=== PATIENT | female | born 1995 | race Two or more races ===

== ENCOUNTER 2023-06-20 07:40 | Inpatient (IN) | payer MEDICAID ==
[~2023-06-20] VITALS: Ht 157.5 cm; Wt 77.1 kg
[2023-06-20] MEDS ORDERED: BUTORPHANOL TARTRATE 2 MG/1 ML VIAL IV PRN ×2 (09:45)
[2023-06-20] MEDS ORDERED: PROMETHAZINE HCL 25 MG/ML 1ML IV PRN (09:45)
[2023-06-20] MEDS ORDERED: PHISODERM TOP SOLN 240ML BTL TOP PRN (09:45)
[2023-06-20] MEDS ORDERED: LIDOCAINE 2%HCL (LOCAL ANESTH.) INJ 20ML MDV IJ PRN (09:45)
[2023-06-20] MEDS ORDERED: PENICILLIN G POT 5MIL/D5 50ML 50 ML IV ONE (09:45)
[2023-06-20] MEDS ORDERED: LACT. RINGERS/OXYTOCIN 20UNITS 500 ML IV ONE ×2 (09:45→10:15)
[2023-06-20] MEDS ORDERED: WITCH HAZEL-GLYCERIN PAD TOP PRN (09:45)
[2023-06-20] MEDS ORDERED: DERMOPLAST 60ML BOTTLE TOP PRN (09:45)
[2023-06-20 10:04] LABS: Basophils # (auto) 0.1 10 ^3/uL (0-0.2); Basophils % (auto) 0.6 % (0.0-2.0); Eosinophils # (auto) 0.1 10 ^3/uL (0-0.8); Eosinophils % (auto) 1.3 % (0.0-7.0); Hematocrit 36.8 % (36.0-46.0); Hemoglobin 12.5 g/dL (12.2-16.2); Lymphocytes # (auto) 1.9 10 ^3/uL (0.4-5.4); Mean Corpuscular Hemoglobin 30.3 pg (28.0-32.0); Mean Corpuscular Hgb Conc. 33.9 g/dL (32.0-36.0); Mean Corpuscular Volume 89.3 fL (80.0-100.0); Monocytes # (auto) 0.5 10 ^3/uL (0-1.3); Monocytes % (auto) 6.2 % (0.0-12.0); Neutrophils # (auto) 6.3 10 ^3/uL (1.6-8.6); Neutrophils % (auto) 70.9 % (37.0-80.0); Nucleated Red Blood Cells % 0.1 %; Red Blood Cells 4.12 10^6/uL (4.0-5.20); Red Cell Distribution Width 13.7 % (11.8-14.3); White Blood Cell 8.9 10^3/uL (4.4-10.8)
[2023-06-20 10:26] LABS: INR 0.99 (0.9-1.15); Partial Thromboplastin Time 28.3 SEC (24.5-34.5); Prothrombin Time 10.4 sec (9.3-11.8)
[2023-06-20 10:27] LABS: Alanine Aminotransferase 16 U/L (7-40); Albumin 3.5 g/dL (3.2-4.8); Alkaline Phosphatase 164 U/L (46-116); Anion Gap 8 (5-15); Aspartate Aminotransferase 21 U/L (13-40); BUN/Creatinine Ratio 11.1 (10.0-20.0); Blood Urea Nitrogen 6 mg/dL (9-23); Calcium 8.9 mg/dL (8.5-10.1); Carbon Dioxide 22 mmol/L (20-30); Chloride 108 mmol/L (98-107); Glucose 72 mg/dL (74-106); Sodium 138 mmol/L (136-145)
[2023-06-20 10:28] LABS: Bilirubin, Total 0.5 mg/dL (0.2-1.0); Total Protein 5.9 g/dL (5.7-8.2)
[2023-06-20] MEDS: LACTATED RINGER'S 1,000 ML IV SCH (10:32)
[2023-06-20 10:33] LABS: Urine Bacteria NONE SEEN /hpf (None Seen); Urine Blood Negative /uL (Negative); Urine Clarity HAZY (Clear); Urine Protein, UAD Negative (Negative); Urine Specific Gravity 1.008 (1.001-1.035); Urine Urobilinogen Normal (Negative); Urine WBC 112 /hpf (0 - 5)
[2023-06-20 10:41] LABS: Amphetamine Screen, Urine Neg (NEGATIVE); Barbiturate Scree,Urine Neg (NEGATIVE); Benzodiazephine Screen, Urine Neg (NEGATIVE); Cannabinoid Screen, Urine Neg (NEGATIVE); Cocaine Screen, Urine Neg (NEGATIVE); Opiate Scree,Urine Neg (NEGATIVE); Phencyclidine Screen, Urine Neg (NEGATIVE)
[2023-06-20 10:43] LABS: Urine Color STRAW (Yellow)
[2023-06-20] MEDS: miSOPROStol 50 MCG per PRE-CUT 1/2 TAB PO PRN ×3 (10:52→22:36)
[2023-06-20] MEDS ORDERED: ceFAZolin 1GM/50ML 50 ML IV SCH ×2 (12:00→14:00)
[2023-06-20] MEDS ORDERED: PENICILLIN G POTASSIUM 2,500,000 UNITS in D5W 5% 50 ML IV SCH (13:45)
[2023-06-20] MEDS: ceFAZolin 1GM/50ML 50 ML IV SCH (20:33)
[2023-06-21] MEDS ORDERED: ROPIVACAINE HCL 200 ML EPI SCH ×2 (01:15→03:15)
[2023-06-21] MEDS ORDERED: ePHEDrine SULFATE 50 MG/ML AMP IV ONE (01:15)
[2023-06-21] MEDS ORDERED: LACTATED RINGER'S 500 ML IV ONE (01:15)
[2023-06-21] MEDS ORDERED: LIDOCAINE HCL 2 %PF INJ 10ML AMP IJ ONE (01:15)
[2023-06-21] MEDS ORDERED: NALOXONE HCL 0.4 MG/ML VIAL IV ONE (01:15)
[2023-06-21] MEDS ORDERED: Lidocaine W-Epinephrine 1.5%-1:200,000 INJ 10ml Vial IJ ONE (01:15)
[2023-06-21] MEDS ORDERED: fentaNYL CITRATE 100 MCG/2 ML VL IV ONE (01:15)
[2023-06-21] MEDS ORDERED: LACTATED RINGER'S 1,000 ML IV ONE (01:15)
[2023-06-21] MEDS: LACTATED RINGER'S 1,000 ML IV SCH (02:43)
[2023-06-21] MEDS: ceFAZolin 1GM/50ML 50 ML IV SCH (04:33)
[2023-06-21] MEDS ORDERED: miSOPROStol 100 mcg TAB PR PRN (05:00)
[2023-06-21] MEDS ORDERED: METHYLERGONOVINE MALEATE 0.2 MG/ML AMP IM PRN (05:00)
[2023-06-21] MEDS ORDERED: ONDANSETRON HCL 4 MG/2 ML VIAL IV PRN (05:00)
[2023-06-21] MEDS ORDERED: CARBOPROST TROMETHAMINE 250 MCG/1ML VIAL IM PRN (05:00)
[2023-06-21] MEDS ORDERED: miSOPROStol 100 mcg TAB SL PRN (05:00)
[2023-06-21] MEDS ORDERED: LACT. RINGERS/OXYTOCIN 20UNITS 500 ML IV ONE ×2 (06:00→06:30)
[2023-06-21] MEDS ORDERED: LIDOCAINE 2%HCL (LOCAL ANESTH.) INJ 20ML MDV IJ PRN (06:00)
[2023-06-21] MEDS ORDERED: IBUPROFEN 600 MG TAB PO PRN (08:15)
[2023-06-21] MEDS ORDERED: ACETAMINOPHEN 325 MG TAB PO PRN (08:15)
[2023-06-21 08:55] LABS: Hematocrit 32.2 % (36.0-46.0); Hemoglobin 10.9 g/dL (12.2-16.2); Mean Corpuscular Hemoglobin 30.4 pg (28.0-32.0); Mean Corpuscular Hgb Conc. 33.8 g/dL (32.0-36.0); Mean Corpuscular Volume 89.8 fL (80.0-100.0); Red Blood Cells 3.59 10^6/uL (4.0-5.20); Red Cell Distribution Width 13.6 % (11.8-14.3); White Blood Cell 12.6 10^3/uL (4.4-10.8)
[2023-06-21 09:03] LABS: Basophils % (manual) 0 (0.0-2.0); Blast Cells 0; Eosinophils % (manual) 0 (0-7); Metamyelocytes % 0; Myelocytes % 0; Promyelocytes % 0; Reactive Lymphocytes 0
[2023-06-21 09:33] LABS: Platelet Estimate Adequate; RBC Morphology Normal
[2023-06-21 09:37] LABS: Band Neutrophils % (manual) 4; Lymphocytes % (manual) 13 (10.0-50.0)
[2023-06-21 09:38] LABS: Monocytes % (manual) 6 (0-12)
[2023-06-21] MEDS ORDERED: DIPHENOXYLATE W/ATROPINE 2.5 MG TAB PO SCH (10:00)
[2023-06-21] MEDS: DOCUSATE CALCIUM 240 MG CAP PO SCH (10:00)
[2023-06-21 11:00] VITALS: BP 110/64; PULSE 89; RESP 18; TEMP 99.1; O2SAT 97
[2023-06-21 12:04] LABS: Basophils # (auto) 0 10 ^3/uL (0-0.2); Basophils % (auto) 0.3 % (0.0-2.0); Eosinophils # (auto) 0 10 ^3/uL (0-0.8); Eosinophils % (auto) 0.2 % (0.0-7.0); Hematocrit 30.6 % (36.0-46.0); Hemoglobin 10.3 g/dL (12.2-16.2); Lymphocytes # (auto) 1.7 10 ^3/uL (0.4-5.4); Lymphocytes % (auto) 13.2 % (10.0-50.0); Mean Corpuscular Hemoglobin 30.3 pg (28.0-32.0); Mean Corpuscular Hgb Conc. 33.7 g/dL (32.0-36.0); Mean Corpuscular Volume 89.8 fL (80.0-100.0); Monocytes % (auto) 7.4 % (0.0-12.0); Neutrophils # (auto) 10.4 10 ^3/uL (1.6-8.6); Neutrophils % (auto) 78.9 % (37.0-80.0); Red Cell Distribution Width 13.6 % (11.8-14.3); White Blood Cell 13.2 10^3/uL (4.4-10.8)
[2023-06-21 15:00] VITALS: BP 110/64; PULSE 99; RESP 18; TEMP 98.9; O2SAT 97
[2023-06-21] MEDS ORDERED: HYDROcodone-ACET 5/325MG TAB PO PRN (15:30)
[2023-06-21] MEDS: HYDROcodone-ACET 5/325MG TAB PO PRN ×2 (15:35→22:26)
[2023-06-21 19:00] VITALS: BP 112/62; PULSE 98; RESP 18; TEMP 98.2; O2SAT 98
[2023-06-21] MEDS: MILK OF MAGNESIA 30ML SUSP PO SCH (19:42)
[2023-06-21] MEDS ORDERED: DOCUSATE SOD 100 MG CAP PO SCH (22:00)
[2023-06-21 23:00] VITALS: BP 101/64; PULSE 94; RESP 18; TEMP 98.4; O2SAT 98
[2023-06-22 03:00] VITALS: BP 105/68; PULSE 88; RESP 18; TEMP 98.9; O2SAT 97
[2023-06-22 06:06] LABS: RPR Non Reactive (Non Reactive)
[2023-06-22] MEDS ORDERED: IBU600T PO (06:53)
[2023-06-22] MEDS ORDERED: DOCU-265 PO (06:53)
[2023-06-22 07:10] VITALS: BP 105/67; PULSE 91; RESP 17; TEMP 98.3; O2SAT 100
[2023-06-22] MEDS: HYDROcodone-ACET 5/325MG TAB PO PRN (07:41)
[2023-06-22] MEDS: DOCUSATE CALCIUM 240 MG CAP PO SCH (09:55)
[2023-06-22] MEDS: MILK OF MAGNESIA 30ML SUSP PO SCH (09:56)
[2023-06-22 11:20] VITALS: BP 90/55; PULSE 84; RESP 16; TEMP 97.9; O2SAT 97
[2023-06-22 22:06] LABS: Chlamydia Trachomatis, NAA Negative (Negative); Neisseria gonorrhoeae, NAA Negative (Negative)
[2023-06-23 20:06] LABS: Treponema pallidum Ab (FTA-Ab) Non Reactive (Non Reactive)
== END 2023-06-22 13:05 | disposition home or self-care (01) | DRG 542 ==
LOC: LDRP 07:40 → OBSVTOIN 09:36 → LDRP 06-21 11:51
PROVIDERS: ADMIT Obstetrics & Gynecology; ATTEND Obstetrics & Gynecology
PROC: 10D07Z6 Extraction of Products of Conception, Vacuum, Via Natural or Artificial Opening (ICD-10-PCS; principal; 2023-06-21)
PROC: 0DQR0ZZ Repair Anal Sphincter, Open Approach (ICD-10-PCS; 2023-06-21)
PROC: 3E0R3BZ Introduction of Anesthetic Agent into Spinal Canal, Percutaneous Approach (ICD-10-PCS; 2023-06-21)
PROC: 00HU33Z Insertion of Infusion Device into Spinal Canal, Percutaneous Approach (ICD-10-PCS; 2023-06-21)
DX: O48.0 Post-term pregnancy (principal); Z37.0 Single live birth; O70.20 Third degree perineal laceration during delivery, unspecified; O75.81 Maternal exhaustion complicating labor and delivery; O71.89 Other specified obstetric trauma; O77.0 Labor and delivery complicated by meconium in amniotic fluid; O76 Abnormality in fetal heart rate and rhythm complicating labor and delivery; Z3A.40 40 weeks gestation of pregnancy
CPT/HCPCS: 36415; 59025; 59409; 62282; 76818; 80053; 80307; 81001; 81002; 82948; 82962; 85007; 85025; 85027; 85610; 85730; 86592; 86850; 86900; 86901; 94760; 94762; 96360; 96361; 96365; 96366; G0378; J0690; J2590; J7060